=== PATIENT | female | born 1955 | race Caucasian/White ===

== ENCOUNTER 2017-12-14 08:48 | Outpatient (CLI) | payer OTHER | END 2017-12-14 08:56 | disposition home or self-care (01) | LOC: LAB 08:48 | DX: D50.0 Iron deficiency anemia secondary to blood loss (chronic) (principal); E11.65 Type 2 diabetes mellitus with hyperglycemia; Z12.11 Encounter for screening for malignant neoplasm of colon; K62.5 Hemorrhage of anus and rectum; R10.9 Unspecified abdominal pain; E78.00 Pure hypercholesterolemia, unspecified; E03.0 Congenital hypothyroidism with diffuse goiter; N39.0 Urinary tract infection, site not specified; E55.9 Vitamin D deficiency, unspecified; M81.0 Age-related osteoporosis without current pathological fracture ==

== ENCOUNTER 2018-03-28 10:42 | Outpatient (CLI) | payer OTHER | END 2018-03-28 10:53 | disposition home or self-care (01) | LOC: LAB 10:42 | DX: R85.0 Abnormal level of enzymes in specimens from digestive organs and abdominal cavity (principal) ==

== ENCOUNTER 2018-03-28 11:35 | Outpatient (CLI) | payer OTHER | END 2018-03-28 11:38 | disposition home or self-care (01) | LOC: SONOGRAMA 11:35 | DX: R85.0 Abnormal level of enzymes in specimens from digestive organs and abdominal cavity (principal) ==

== ENCOUNTER → 2021-06-10 08:19 | Outpatient (CLI) | payer OTHER | END | disposition home or self-care (01) | LOC: RAD 08:19 | PROVIDERS: ATTEND Internal Medicine | DX: M17.0 Bilateral primary osteoarthritis of knee (principal) ==

== ENCOUNTER 2021-06-25 09:26 | Outpatient (CLI) | payer OTHER | END 2021-06-25 09:30 | disposition home or self-care (01) | LOC: RAD 09:26 | DX: M99.01 Segmental and somatic dysfunction of cervical region (principal); M99.02 Segmental and somatic dysfunction of thoracic region; M99.03 Segmental and somatic dysfunction of lumbar region; M99.05 Segmental and somatic dysfunction of pelvic region ==

== ENCOUNTER → 2021-12-31 | Outpatient (CLI) | payer OTHER | END | disposition home or self-care (01) | LOC: SONOGRAMA 07:18 | PROVIDERS: ATTEND Internal Medicine | DX: R10.9 Unspecified abdominal pain (principal) ==

== ENCOUNTER 2022-04-21 11:06 | Outpatient (CLI) | payer OTHER | END 2022-04-21 11:14 | disposition home or self-care (01) | LOC: RAD 11:06 | PROVIDERS: ATTEND Internal Medicine | DX: M25.561 Pain in right knee (principal) ==

== ENCOUNTER 2022-09-14 19:16 | Emergency (ER) | payer OTHER ==
[~2022-09-14] VITALS: Ht 144.8 cm; Wt 56.2 kg
== END 2022-09-14 23:45 | disposition home or self-care (01) ==
LOC: ER 19:16
DX: R10.11 Right upper quadrant pain (principal)

== ENCOUNTER 2023-11-29 08:58 | Outpatient (CLI) | payer OTHER | END 2023-11-29 09:04 | disposition home or self-care (01) | LOC: SONOGRAMA 08:58 | PROVIDERS: ATTEND Internal Medicine | DX: R10.9 Unspecified abdominal pain (principal) ==

== ENCOUNTER 2023-12-18 06:32 | Day surgery (SDC) | payer OTHER ==
[2023-12-14 09:18] LABS: PH,URINE 5.5 (5.0-8.0); URINE APPEARANCE Clear; URINE BILIRRUBIN Negative (NEGATIVE); URINE BLOOD Negative; URINE COLOR Dark Yellow; URINE GLUCOSE Negative (NEGATIVE); URINE KETONE Negative (NEGATIVE); URINE LEUKOCYTE Negative; URINE NITRATE Negative; URINE PROTEIN Trace (NEGATIVE)
[2023-12-14 09:20] LABS: URINE BACTERIA 32.7 uL (0.0-1933); URINE EPITHELIAL CELLS 11.8 uL (0.0-38.8); URINE RBC 10.2 uL (0.0-20.8); URINE WBC 7.8 uL (0.0-23.2)
[2023-12-14 09:22] LABS: URINE CAST 0.76 uL (0.0-1.40)
[2023-12-14 09:23] LABS: HEMATOCRIT 40.1 % (36.0-45.00); HEMOGLOBIN 13.7 g/dL (12.0-15.00); MEAN CELL VOLUME 90.1 fL (80.00-100.00); MEAN CORPUSCULAR HEMOGLOBIN 30.8 pg (27.00-32.0); MEAN CORPUSCULAR HGB CONC 34.2 g/dl (32.0-36.0); PLATELET COUNT 292 K/uL (150-450); RED BLOOD COUNT 4.45 M/uL (4.00-6.00); RED CELL DISTRIBUTION WIDTH 13.9 % (11.5-14.5)
[2023-12-14 09:52] LABS: INR 0.96; PROTHROMBIN TIME 10.1 SECONDS (9.0-11.5)
[2023-12-14 10:02] LABS: ALBUMIN 3.5 gm/dL (3.4-5.0); BILIRUBIN TOTAL 0.52 mg/dL (0.3-1.2); CREATININE SERUM 0.86 mg/dL (0.55-1.02); GFR 65.62; GLOBULINA 4.1 G/DL (2.4-3.5); POTASSIUM 4.29 mEq/L (3.5-5.1); TOTAL PROTEIN 7.6 gm/dL (6.4-8.2)
[2023-12-18] MEDS ORDERED: CEFAZOLIN SODIUM 1,000 MG VIAL ONE (18:55)
[2023-12-18] MEDS ORDERED: SUGAMMADEX SODIUM 200 MG/2 ML VIAL IV ONE ×2 (20:11→20:30)
[2023-12-18] MEDS ORDERED: CEFAZOLIN SODIUM 1,000 MG VIAL IV SCH (20:15)
[2023-12-19] MEDS ORDERED: SUGAMMADEX SODIUM 200 MG/2 ML VIAL IV ONE (21:30)
== END 2023-12-18 23:00 | disposition home or self-care (01) ==
LOC: CIR.AMB 06:32
PROVIDERS: ATTEND Surgery
DX: K80.10 Calculus of gallbladder with chronic cholecystitis without obstruction (principal)

== ENCOUNTER 2024-10-09 09:22 | Outpatient (CLI) | payer OTHER | END 2024-10-09 09:28 | disposition home or self-care (01) | LOC: MAMO-SONO 09:22 | PROVIDERS: ATTEND Internal Medicine | DX: Z12.31 Encounter for screening mammogram for malignant neoplasm of breast (principal) ==